=== PATIENT | male | born 1965 | race Hispanic/Latino ===

== ENCOUNTER 2020-08-13 21:00 | Emergency (ER) | payer SELFPAY ==
--- NOTE | 2020-08-13 21:26 | EDPHYS ---
Physician Documentation [facility] Name: Andrew Meza Age: 54 yrs Sex: Male : 1965 Arrival Date: 08/13/2020 Time: 21:01 Bed 15 Private MD: ED Physician Tyson Cabezas HPI: 08/13 21:36 This 54 yrs old Male presents to ER via Wheelchair with complaints of Fall pm1 Injury. 21:36 Details of fall: The patient fell from an upright position, while standing. Onset: The pm1 symptoms/episode began/occurred just prior to arrival. Associated injuries: The patient sustained right leg. Severity of symptoms: in the emergency department the symptoms are unchanged. The patient has not experienced similar symptoms in the past. Patient has been drinking Tequila tonight and his daughter picked up. When he got out of the car he planted his foot and rotated causing the injury to his right lower leg. No numbness or tingling. 22:16 History of HTN and hyperlipidemia. pm1 Historical: - Allergies: 21:13 No Known Allergies; ca1 - Immunization history:: Adult Immunizations unknown. - Social history:: Smoking status: Patient reports the use of cigarette tobacco products, smokes one pack cigarettes per day. - Immunization history: Last tetanus immunization: unknown. ROS: 21:36 Constitutional: Negative for fever, chills, and weight loss, Neck: Negative for injury, pm1 pain, and swelling, Cardiovascular: Negative for chest pain, palpitations, and edema, Respiratory: Negative for shortness of breath, cough, wheezing, and pleuritic chest pain, Abdomen/GI: Negative for abdominal pain, nausea, vomiting, diarrhea, and constipation, Back: Negative for injury and pain. 21:36 Skin: Negative for injury, rash, and discoloration, Neuro: Negative for headache, weakness, numbness, tingling, and seizure. 21:36 MS/extremity: Positive for pain, of the right berger. Exam: 21:36 Constitutional: This is a well developed, well nourished patient who is awake, alert, pm1 and in no acute distress. Head/Face: Normocephalic, atraumatic. Neck: Trachea midline, no thyromegaly or masses palpated, and no cervical lymphadenopathy. Supple, full range of motion without nuchal rigidity, or vertebral point tenderness. No Meningismus. 21:36 Back: No spinal tenderness. No costovertebral tenderness. Full range of motion. 21:36 Skin: Warm, dry with normal turgor. Normal color with no rashes, no lesions, and no evidence of cellulitis. 21:36 Cardiovascular: Exam negative for acute changes, Rate: normal, Rhythm: regular, Pulses: no pulse deficits are appreciated. 21:36 Respiratory: Exam negative for acute changes, respiratory distress, shortness of breath. 21:36 Abdomen/GI: Exam negative for acute changes, Inspection: abdomen appears normal, Palpation: abdomen is soft and non-tender, in all quadrants. 21:36 Musculoskeletal/extremity: Extremities: grossly normal except: noted in the right berger: tenderness, There is no evidence of compartment syndrome. Neurovascular status intact to right foot and toes, Pulses: noted to be 2+ in the right berger, the right foot Sensation intact. Compartment Syndrome exam of affected extremity: is normal. no numbness, no tingling, no sensation deficit, no palor, no weak pulses. 21:36 Neuro: Orientation: is normal, Mentation: is normal, Motor: moves all fours, Sensation: is normal, no obvious gross deficits. Vital Signs: 21:13 BP 119 / 75; Pulse 71; Resp 17 S; Temp 97.4(TE); Pulse Ox 96% on R/A; ca1 22:15 BP 133 / 78; Pulse 72; Resp 17 S; Pulse Ox 97% on R/A; jd3 23:18 BP 137 / 88; Pulse 70; Resp 16 S; Pulse Ox 96% on R/A; jd3 Durga Coma Score: 21:20 Eye Response: spontaneous(4). Verbal Response: confused(4). Motor Response: obeys jd3 commands(6). Total: 14. 23:18 Eye Response: spontaneous(4). Verbal Response: confused(4). Motor Response: obeys jd3 commands(6). Total: 14. Trauma Score (Adult): 21:20 Eye Response: spontaneous(1); Verbal Response: confused(1); Motor Response: obeys jd3 commands(2); Systolic BP: > 89 mm Hg(4); Respiratory Rate: 10 to 29 per min(4); Durga Score: 14; Trauma Score: 12 23:18 Eye Response: spontaneous(1); Verbal Response: confused(1); Motor Response: obeys jd3 commands(2); Systolic BP: > 89 mm Hg(4); Respiratory Rate: 10 to 29 per min(4); Durga Score: 14; Trauma Score: 12 Procedures: 22:19 Splinting: Splint applied to right leg using Orthoglass splint, applied by myself. pm1 tech. nurse. Examined by me, post splint application: neurovascular intact, 2+ distal pulses palpable, Patient tolerated well. MDM: 21:12 Patient medically screened. pm1 21:24 Data reviewed: vital signs. Data interpreted: Pulse oximetry: on room air is 96 %. pm1 Interpretation: normal. Counseling: I had a detailed discussion with the patient and/or guardian regarding: the historical points, exam findings, and any diagnostic results supporting the discharge/admit diagnosis, radiology results, the need to transfer to another facility, [facility] does not immediately have the required specialist. 22:05 Physician consultation: Khadra Vela was contacted at 22:00, regarding regarding transfer, pm1 patient's condition, and will see patient Transferring patient because no orthopedics national secretary here. 08/13 21:22 Order name: Basic Metabolic Panel; Complete Time: 21:57 pm1 08/13 21:22 Order name: CBC with Diff; Complete Time: 21:57 pm1 08/13 21:12 Order name: XRAY Tib Fib RIGHT; Complete Time: 21:57 ea 08/13 21:22 Order name: PT-INR; Complete Time: 21:57 pm1 08/13 21:22 Order name: Ptt, Activated; Complete Time: 21:57 pm1 08/13 21:12 Order name: IV Saline Lock; Complete Time: 21:37 pm1 08/13 21:22 Order name: Labs collected and sent; Complete Time: 21:37 pm1 08/13 21:22 Order name: Splint - Long Leg: Posterior w/ Stirrup; Complete Time: 23:39 pm1 08/13 21:24 Order name: NPO; Complete Time: 21:24 pm1 Administered Medications: 21:42 Drug: NS 0.9% 1000 ml Route: IV; Rate: 125 ml/hr; Site: right forearm; jd3 23:39 Follow up: Response: No adverse reaction; IV Status: Infusion continued upon transfer jd3 22:13 Drug: fentaNYL (PF) 50 mcg Route: IVP; Site: right forearm; jd3 23:10 Follow up: Response: No adverse reaction; RASS: Alert and Calm (0) jd3 22:17 Drug: Zofran (Ondansetron) 4 mg Route: IVP; Site: right forearm; jd3 23:15 Follow up: Response: No adverse reaction jd3 Disposition: 08/14 05:27 Co-signature as Attending Physician, Tyson Cabezas MD. [email or web address] Disposition: 08/13/20 21:26 Transfer ordered to [facility]. Diagnosis are Displaced comminuted fracture of shaft of right fibula, Displaced comminuted fracture of shaft of right tibia. - Reason for transfer: Specialty. - Accepting physician is [facility] Trauma. - Condition is Stable. - Problem is new. - Symptoms have improved. Signatures: Dispatcher [employer] EDMS Velasquez Horton NP PRODUCTION SUPV pm1 Clinton Flower RN RN jd3 Acob, Cheryl, RN RN ca1 Holmes, Maurice, MD MD 7 Corrections: (The following items were deleted from the chart) 08/13 23:41 21:26 08/13/2020 21:26 Transfer ordered to [facility]. Diagnosis is jd3 Displaced comminuted fracture of shaft of right fibula; Displaced comminuted fracture of shaft of right tibia. Reason for transfer: Specialty. Accepting physician is [facility] Trauma. Condition is Stable. Problem is new. Symptoms have improved. pm1
--- NOTE | 2020-08-13 21:26 | ER ---
Nurse's Notes [facility] Name: Andrew Meza Age: 54 yrs Sex: Male : 1965 Arrival Date: 08/13/2020 Time: 21:01 Bed 15 Private MD: Diagnosis: Displaced comminuted fracture of shaft of right fibula;Displaced comminuted fracture of shaft of right tibia Presentation: 08/13 21:11 Chief complaint: Friend and/or Co-Worker states: Friend: [place] and [place] ca1 drinking. He was getting out of a stationary car with his R foot when he fell. Obvious deformity noted on R lower leg. Pulses on R foot palpable. 21:11 Method Of Arrival: Wheelchair ca1 21:11 Care prior to arrival: None. Mechanism of Injury: twisted ankle. Trauma event details: jd3 Injury occurred in the [facility], Injury occurred: at home. 21:13 Coronavirus screen: Client denies travel out of the [place] in the last 14 days. At this ca1 time, the client does not indicate any symptoms associated with coronavirus-19. Ebola Screen: Patient negative for fever greater than or equal to 101.5 degrees Fahrenheit, and additional compatible Ebola Virus Disease symptoms Patient denies exposure to infectious person. Patient denies travel to an Ebola-affected area in the 21 days before illness onset. No symptoms or risks identified at this time. Initial Sepsis Screen: Does the patient meet any 2 criteria? No. Patient's initial sepsis screen is negative. Does the patient have a suspected source of infection? No. Patient's initial sepsis screen is negative. Risk Assessment: Do you want to hurt yourself or someone else? Patient reports no desire to harm self or others. Onset of symptoms was August 13, 2020. 21:13 Acuity: GABE 2 ca1 Trauma Activation: Alert Physician: ED Physician; Name: Raulito; Notified At: 21:06; Arrived At: 21:08 Physician: General Surgeon; Name: ; Notified At: 21:06; Arrived At: Physician: Radiology; Name: Kylee Dodge; Notified At: 21:06; Arrived At: 21:08 Physician: Respiratory; Name: ; Notified At: 21:06; Arrived At: Physician: Lab; Name: ; Notified At: 21:06; Arrived At: Historical: - Allergies: 21:13 No Known Allergies; ca1 - Immunization history:: Adult Immunizations unknown. - Social history:: Smoking status: Patient reports the use of cigarette tobacco products, smokes one pack cigarettes per day. - Immunization history: Last tetanus immunization: unknown. Screenin:19 Abuse screen: Denies threats or abuse. Nutritional screening: No deficits noted. jd3 Tuberculosis screening: No symptoms or risk factors identified. 21:21 Fall Risk Fall in past 12 months (25 points). Secondary diagnosis (15 points) impaired jd3 mobility, Mental Status- Overestimates/Forgets Limitations (15 pts.). Total Tompkins Fall Scale indicates High Risk Score (45 or more points). Fall prevention measures have been instituted. Side Rails Up X 2 Placed Close to Nursing Station Frequent Obs/Assessments Occuring Family Present and informed to notify staff if the need to leave the bedside. Primary Survey: 21:17 NO uncontrolled hemorrhage observed. A: The patient is alert. Breathing/Chest: jd3 Respiratory pattern: regular, Respiratory effort: spontaneous, unlabored, Chest inspection: symmetrical rise and fall of the chest. Circulation: Pulses: palpable right radial artery, right dorsalis pedis artery, left radial artery and left dorsalis pedis artery. Skin color: pink, Skin temperature: warm. Disability Alert. Exposure/Environment: All clothing and personal items were removed. Forensic evidence collection is not deemed to be indicated at this time. Items placed in patient belonging bag. There is no evidence of uncontrolled external bleeding. Obvious injury(ies) are noted at this time: obvious deformity noted to right lower leg A warming method has been applied: A warm blanket has been provided to the patient. 22:15 Reassessment Airway Airway Patent Oxygen No O2 Oral cavity Clear Trachea Midline jd3 Breathing/Chest Respiratory pattern Regular Respiratory effort Spontaneous Unlabored Chest inspection Symmetrical Circulation Pulses Palpable Color [place] Temperature Warm Disability Alert. Secondary Survey: 21:18 HEENT: No deficits noted. Gastrointestinal: Abdomen is soft. : No signs and/or jd3 symptoms were reported regarding the genitourinary system. Musculoskeletal: Circulation, motion, and sensation intact. Range of motion: intact in all extremities. Assessment: 21:14 General: Appears in no apparent distress. comfortable, Behavior is calm, cooperative, jd3 Smells of alcohol, pt reports drink a lot of Tequila. Pain: Denies pain. Neuro: Level of Consciousness is awake, obeys commands, confused, Oriented to person, pt smells of ETOH. EENT: No signs and/or symptoms were reported regarding the EENT system. Cardiovascular: Capillary refill < 3 seconds Patient's skin is warm and dry. Respiratory: Airway is patent Respiratory effort is even, unlabored, Respiratory pattern is regular, symmetrical. GI: No signs and/or symptoms were reported involving the gastrointestinal system. : No signs and/or symptoms were reported regarding the genitourinary system. Derm: Skin is intact, Skin is dry, Skin is normal, Skin temperature is warm. Musculoskeletal: Circulation, motion, and sensation intact. Range of motion: limited in right ankle Bony deformity noted of right berger Swelling present in right ankle. 22:15 Reassessment: No changes from previously documented assessment. Patient and/or family jd3 updated on plan of care and expected duration. Pain level reassessed. pt splinted, pt resting in bed. even and unlabored respirations. 23:16 Reassessment: No changes from previously documented assessment. Patient and/or family jd3 updated on plan of care and expected duration. Pain level reassessed. even and unlabored respirations, report called to Marlo at [facility] for transfer. Vital Signs: 21:13 BP 119 / 75; Pulse 71; Resp 17 S; Temp 97.4(TE); Pulse Ox 96% on R/A; ca1 22:15 BP 133 / 78; Pulse 72; Resp 17 S; Pulse Ox 97% on R/A; jd3 23:18 BP 137 / 88; Pulse 70; Resp 16 S; Pulse Ox 96% on R/A; jd3 Economy Coma Score: 21:20 Eye Response: spontaneous(4). Verbal Response: confused(4). Motor Response: obeys jd3 commands(6). Total: 14. 23:18 Eye Response: spontaneous(4). Verbal Response: confused(4). Motor Response: obeys jd3 commands(6). Total: 14. Trauma Score (Adult): 21:20 Eye Response: spontaneous(1); Verbal Response: confused(1); Motor Response: obeys jd3 commands(2); Systolic BP: > 89 mm Hg(4); Respiratory Rate: 10 to 29 per min(4); Durga Score: 14; Trauma Score: 12 23:18 Eye Response: spontaneous(1); Verbal Response: confused(1); Motor Response: obeys jd3 commands(2); Systolic BP: > 89 mm Hg(4); Respiratory Rate: 10 to 29 per min(4); Durga Score: 14; Trauma Score: 12 ED Course: 21:01 Patient arrived in ED. ds1 21:08 Velasquez Hotron, PAUL is PHCP. pm1 21:08 Tyson Cabezas MD is Attending Physician. pm1 21:11 Clinton Flower RN is Primary Nurse. jd3 21:13 Triage completed. ca1 21:13 Arm band placed on right wrist. ca1 21:19 Patient has correct armband on for positive identification. Bed in low position. Call jd3 light in reach. Side rails up X2. Adult w/ patient. 21:20 Patient maintains SpO2 saturation greater than 95% on room air. jd3 21:21 Thermoregulation: warm blanket given to patient. jd3 21:26 XRAY Tib Fib RIGHT In Process Unspecified. EDMS 21:42 Inserted saline lock: 20 gauge in right forearm, using aseptic technique. Blood jd3 collected. 21:48 Initiated transfer to [facility], spoke with Aren Barros. ar5 21:57 done with ER physician Tae Vela. ar5 22:30 Acceptance given by Aren Barros. Pt. going to [facility] ER. Call report to [facility] [phone]. 23:40 No provider procedures requiring assistance completed. Patient transferred, IV remains jd3 in place. Administered Medications: 21:42 Drug: NS 0.9% 1000 ml Route: IV; Rate: 125 ml/hr; Site: right forearm; jd3 23:39 Follow up: Response: No adverse reaction; IV Status: Infusion continued upon transfer jd3 22:13 Drug: fentaNYL (PF) 50 mcg Route: IVP; Site: right forearm; jd3 23:10 Follow up: Response: No adverse reaction; RASS: Alert and Calm (0) jd3 22:17 Drug: Zofran (Ondansetron) 4 mg Route: IVP; Site: right forearm; jd3 23:15 Follow up: Response: No adverse reaction jd3 Intake: 23:19 PO: 0ml; Total: 0ml. jd3 Outcome: 21:26 ER care complete, transfer ordered by . pm1 23:40 Transferred by ground EMS to [facility], Transfer form completed. X-rays sent jd3 w/ patient. 23:40 Condition: stable 23:40 Instructed on the need for transfer, Demonstrated understanding of instructions. 23:41 Patient's length of stay in the Emergency Department was greater than 2 hours. due to jd3 waiting for results and transferPatient's length of stay extended due to 23:41 Patient left the ED. jd3 Signatures: Dispatcher [employer] EDOR Tricia Joyce ds1 Velasquez Horton, RETAIL PRODUCT DEMO SPECIALIST RETAIL PRODUCT DEMO SPECIALIST pm1 Clinton Flower, DMITRIY RN jd3 Melissa Hameed ar5 Ebony Batres RN RN ca1 Corrections: (The following items were deleted from the chart) 21:22 21:20 Durga Score=14, Trauma Score=12, jd3 jd3 23:40 23:40 Inserted saline lock: 20 gauge in right forearm, using aseptic technique. Blood jd3 collected. jd3
[2020-08-13 21:44] LABS: Absolute Lymphocytes (CBC) 1.5 K/uL (0.7-4.9); Basophils % 0.9 % (0-1.3); Hematocrit 40.1 % (39.6-49.0); Lymphocytes % 21.7 % (15.3-44.8); RBC Red Blood Cell Count 4.47 M/uL (4.33-5.43)
[2020-08-13 21:47] LABS: Protime INR 0.93
[2020-08-13] MEDS ORDERED: NA CHLORIDE 0.9% 1,000 ML ONE (21:51)
--- NOTE | 2020-08-13 21:54 | RAD REPORT ---
EXAM DESCRIPTION: RAD - Tib Fib Right - 08/13/2020 9:26 pm CLINICAL HISTORY: DEFORMITY Pain and swelling COMPARISON: No comparisons FINDINGS: Moderately displaced fracture of the distal shaft of the tibia is seen. A small butterfly fragment is present. Moderately displaced fracture the proximal fibular shaft is also seen with small butterfly fragment. No dislocation evident. Small calcaneal spurs.
[2020-08-13 21:56] LABS: Potassium 3.5 mmol/L (3.5-5.1)
[2020-08-13] MEDS ORDERED: FENTANYL CITR 100 MCG/2 ML ONE (22:21)
[2020-08-13] MEDS ORDERED: ONDANSETRON 4 MG/2 ML VIAL ONE (22:27)
[2020-08-13 23:51] VITALS: TEMP 97.4
[2020-08-13 23:54] VITALS: BP 137/88; O2SAT 96
== END 2020-08-13 23:41 | disposition short-term general hospital (02) ==
LOC: ER 21:00
PROC: 2W3QX1Z Immobilization of Right Lower Leg using Splint (ICD-10-PCS; principal; 2020-08-13)
DX: S82.451A Displaced comminuted fracture of shaft of right fibula, initial encounter for closed fracture (principal); S82.251A Displaced comminuted fracture of shaft of right tibia, initial encounter for closed fracture; X50.1XXA Overexertion from prolonged static or awkward postures, initial encounter; Y93.89 Activity, other specified; Y92.89 Other specified places as the place of occurrence of the external cause; I10 Essential (primary) hypertension; E78.5 Hyperlipidemia, unspecified; F17.210 Nicotine dependence, cigarettes, uncomplicated
CPT/HCPCS: 36415; 80048; 85025; 85610; 85730; 96361; 96374; 96375; 99285; G0390; J2405; J3010; J7030